=== PATIENT | female | born 1985 | race Caucasian/White ===

== ENCOUNTER 2017-10-04 08:10 | Inpatient (IN) | payer OTHER ==
[~2017-10-04] VITALS: Ht 172.7 cm; Wt 76.6 kg
[2017-10-04] VITALS (14 sets, daily range): BP systolic 108–155; BP diastolic 55–88
[~2017-10-04 08:10] MED LIST: AUGMENTIN875 MG PO; MOTRIN600 MG PO
[2017-10-04] MEDS ORDERED: PULMICORT FLE180 MCG IH (08:46)
[2017-10-04] MEDS ORDERED: SINGULAIR10 MG PO (08:47)
[2017-10-04] MEDS ORDERED: CLARITIN,ALAVAR10 MG PO (08:47)
[2017-10-04 09:21] LABS: BASOPHIL (%) 0.2 % (0-1); EOSINOPHIL (%) 0.5 % (0-5); EOSINOPHIL COUNT 0.1 K/uL (0-0.3); HEMATOCRIT 33.2 % (36.0-46.0); HEMOGLOBIN 11.3 G/DL (11.9-15.5); IMMATURE GRANULOCYTE (%) 0.8 % (0.0-0.7); LYMPHOCYTE (%) 15.6 % (15-42); MCH 31.1 PG (29.0-34.0); MCV 91.5 FL (83-99); MONOCYTE (%) 6.4 % (3-12); MONOCYTE COUNT 0.8 K/uL (0-0.8); NEUTROPHIL (%) 76.5 % (45-76); NEUTROPHIL COUNT 9.6 K/uL (1.8-6.4); PLATELET COUNT 92 K/uL (156-360); RBC DIS.WIDTH-CV 13.2 % (11.8-14.6); RBC DIS.WIDTH-SD 44.1 % (39-53); RED BLOOD COUNT 3.63 M/uL (3.80-5.20); WHITE BLOOD COUNT 12.5 K/uL (4.1-10.2)
[2017-10-04 12:59] LABS: AMPHETAMINE NEGATIVE (500 ng/mL); BARBITURATES NEGATIVE (200 ng/mL); BENZODIAZEPINES NEGATIVE (150 ng/mL); BUPRENORPHINE NEGATIVE (10 ng/mL); COCAINE NEGATIVE (150 ng/mL); METHADONE NEGATIVE (200 ng/mL); METHAMPHETAMINE NEGATIVE (500 ng/mL); OPIATES (MORPHINE) NEGATIVE (100 ng/mL); OXYCODONE NEGATIVE (100 ng/mL); PHENCYCLIDINE NEGATIVE (25 ng/mL); PROPOXYPHENE NEGATIVE (300 ng/mL); THC CANNABINOIDS NEGATIVE (50 ng/mL); TRICYCLIC ANTIDEPRESSANTS NEGATIVE (300 ng/mL)
[2017-10-05] VITALS: BP 116/68
[2017-10-05 23:11] VITALS: BP 138/88; BP 174/88
[2017-10-06 05:09] VITALS: BP 138/87
[2017-10-06 06:27] VITALS: BP 118/66
[2017-10-06] MEDS ORDERED: COLACE100 MG PO (12:45)
[2017-10-06] MEDS ORDERED: PROCTOFOAM-HC10 GM PR (12:45)
== END 2017-10-06 14:20 | disposition home or self-care (01) | DRG 775 ==
LOC: LDRP-OP 08:10 → 2WEST 08:11 → LDRP-OP 11-10 16:27
PROVIDERS: Advanced Practice Midwife
DX: O70.1 Second degree perineal laceration during delivery (principal); O63.1 Prolonged second stage (of labor); O22.43 Hemorrhoids in pregnancy, third trimester; O99.52 Diseases of the respiratory system complicating childbirth; J45.909 Unspecified asthma, uncomplicated; O99.62 Diseases of the digestive system complicating childbirth; K21.9 Gastro-esophageal reflux disease without esophagitis; O42.02 Full-term premature rupture of membranes, onset of labor within 24 hours of rupture; Z3A.39 39 weeks gestation of pregnancy; Z37.0 Single live birth
CPT/HCPCS: 85025; J0595; J7120